=== PATIENT | female | born 1955 | race Caucasian/White ===

== ENCOUNTER 2018-09-01 10:56 | Inpatient (IN) ==
[2018-09-01] MEDS ORDERED: *HR* Remifentanil 1 MG VIAL IVP ONE ×2 (11:21→16:22)
[2018-09-01] MEDS ORDERED: Dexamethasone 4 MG/ML VIAL ONE (11:22)
[2018-09-01] MEDS ORDERED: Lidocaine -MPF 2% 2 ML VIAL ONE (11:22)
[2018-09-01] MEDS ORDERED: Ondansetron 4 MG/2 ML VIAL ONE (11:22)
[2018-09-01] MEDS ORDERED: *HR* Propofol 200 MG/20 ML VIAL IVP ONE (11:22)
[2018-09-01] MEDS ORDERED: *HR* Midazolam HCl 2 MG/2 ML VIAL ONE (11:22)
[2018-09-01] MEDS ORDERED: *HR* Rocuronium Bromide 50 MG/5 ML VIAL ONE (11:22)
[2018-09-01] MEDS ORDERED: *HR* FentaNYL (PF) 100 MCG/2 ML VIAL ONE (11:22)
--- NOTE | 2018-09-01 11:33 | Anesthesia Evaluation PreOp ---
Date of Encounter: 09/01/18 Time of Encounter: 11:31 - Past History Planned Operation: right superficial femoral endarterectomy Cardiac History: [place] (2011), HTN, Hyperlipidemia, Cardiac Stent (x1 2011), Other (CAD, PAD) Pulmonary History: Smoker PROOF OPERATOR History: Denies Any Significant HX Other Medical History: Renal (CKD 3), Diabetes Type II, Thyroid Anesthesia History: No Prior Anesthetic Complications, Past Anesthesia (TURBT, ureteral stent) Alcohol Use: none Drug use: none Medications and Allergies Aspirin [Ecotrin] 325 mg PO DAILY 07/13/17 [History] Cholecalciferol (D-3) [Vitamin D] 2,000 unit PO DAILY 07/13/17 [History] Isosorbide MONOnitrate (24 HR) [Imdur] 30 mg PO DAILY 07/13/17 [History] Levothyroxine [Synthroid] 50 mcg PO DAILY 07/13/17 [History] Metoprolol [Lopressor] 100 mg PO DAILY 07/13/17 [History] Nitroglycerin [Nitrostat] 0.4 mg SL DAILY PRN 07/13/17 [History] Simvastatin [Zocor] 40 mg PO DAILY 07/13/17 [History] Allopurinol [Zyloprim 100 MG] 100 mg PO DAILY 07/20/18 [History] Glimepiride [Amaryl] 1 mg PO DAILY 07/20/18 [History] Pyridoxine HCl [Vitamin B-6] 100 mg PO DAILY 07/20/18 [History] Allergy/AdvReac Type Severity Reaction Status Date / Time latex Allergy Hives Verified 08/03/17 14:45 Psyllium [From Metamucil] AdvReac Vomiting Verified 08/03/17 14:45 - Meds/Allergy Pre-op Review Medications Reviewed: Yes Allergies Reviewed: Yes Beta Blockers on Current Med List: Yes If Beta Blockers taken, Date/Time (Last Dose taken): today 0700 Anesthesia Results - Labs Laboratory Tests 08/29/18 08/29/18 16:37 16:37 Hgb 13.3 Hct 39.4 Plt Count 237 Sodium 139 Potassium 4.1 BUN 54 H Creatinine 1.69 H - Imaging EKG: report reviewed (SINUS RHYTHM WITH OCCASIONAL VENTRICULAR PREMATURE COMPLEXES LEFT BUNDLE BRANCH BLOCK) Anesthesia Exam - HEENT Pupil (Motor): EOMI Mallampati: II Teeth: Poor dentition Oral Opening: Greater than 3 - PROOF OPERATOR LOC: Oriented PROOF OPERATOR Motor: Normal RUE, Normal LUE, Normal RLE, Normal LLE, Normal Face PROOF OPERATOR Sensory: Normal: RUE, LUE, RLE, LLE, Face - Cardiac Rhythm: Regular Murmur: None - Pulmonary Breath Sounds: bilateral Clear Respiratory Effort: Symmetrical Anesthesia Assess/Plan ASA Score: 3 Level of consciousness: Cooperative, Oriented, Tranquil Anesthetic Plan: General Monitoring Plan: Standard Monitors Recovery Plan: PACU (agrees to GA)
[2018-09-01] MEDS ORDERED: CeFAZolin Syr 2,000MG/20 ML 2,000 MG/20 ML SYRINGE IVPB ONE (11:43)
[2018-09-01] MEDS ORDERED: Ringers Solution, Lactated 1,000 ML IVC SCH ×2 (11:45→12:00)
[2018-09-01] MEDS ORDERED: *HR* FentaNYL (PF) 100 MCG/2 ML VIAL IVP PRN (11:56)
[2018-09-01] MEDS ORDERED: *HR* OxyCODONE Immed Rel 5 MG TABLET PO PRN ×2 (11:56→18:49)
[2018-09-01] MEDS ORDERED: *HR* Promethazine 25 MG/ML VIAL IVP PRN ×2 (11:56→18:49)
[2018-09-01] MEDS ORDERED: traMADol 50 MG TABLET PO PRN (11:56)
[2018-09-01] MEDS ORDERED: Albuterol 2.5 MG/3 ML NEBULIZER IH ONE (11:56)
--- NOTE | 2018-09-01 12:02 | History & Physical Report ---
Date of Encounter: 09/01/18 Time of Encounter: 11:50 24 Hour HP Update - Instructions Instructions: If the History and Physical is less than 30 days old and was completed prior to A.M. admission and or procedure and has NOT been updated on calendar day of procedure please complete this update prior to performing procedure. - Update Patient reports changes in Medical Condition: No Changes in examination, assessment, or condition: No Changes in Medication: No Preop tests/diagnostics Reviewed: Yes Surgery Remains Indicated: Yes Consent for Planned Operative Procedure(s) Verified: Yes - Pre-Operative Checklist Preoperative Checklist Indicated: Yes Prophylactic Antibiotic Ordered: Yes (Vancomycin due to risk of MRSA) Home Medications Include Beta Herminia: Yes Beta Herminia Taken Today (Day of Surgery): Yes Beta Herminia Taken Yesterday (Day Prior to Surgery): Yes Is VTE Prophylaxis Indicated?: Yes
[2018-09-01] MEDS ORDERED: Albuterol 2.5 MG/3 ML NEBULIZER ONE (12:16)
[2018-09-01] MEDS ORDERED: Water for inj. (sterile) 20 ML IV ONE (12:17)
[2018-09-01] MEDS ORDERED: *HR* Phenylephrine 10 MG/ML VIAL ONE (12:19)
[2018-09-01] MEDS ORDERED: Vancomycin 1,000 MG, Sodium Chloride IRRigation 1,000 ML IR ONE (12:45)
[2018-09-01] MEDS ORDERED: Heparin 1,000 UNITS/500 mL 500 ML ONE (12:59)
[2018-09-01] MEDS ORDERED: *HR* PHENYLEPHRINE 1,000 MCG/10 ML SYRINGE IVP ONE (13:43)
[2018-09-01] MEDS ORDERED: EPHEDrine 50 MG/ML VIAL ONE (14:04)
[2018-09-01] MEDS ORDERED: *HR* Heparin 5,000 UNIT/ML VIAL ONE ×2 (14:52→15:32)
[2018-09-01] MEDS ORDERED: *HR* HYDROMORPHONE 2 MG/ML VIAL ONE (16:52)
[2018-09-01] MEDS ORDERED: Neostigmine Methylsulfate 3 MG/3 ML SYRINGE ONE (16:55)
--- NOTE | 2018-09-01 17:55 | Operative Note ---
Date of procedure: 09/01/18 Pre-op diagnosis: Peripheral vascular disease with disabling claudication Post-op diagnosis: same Procedure: 1. Right superficial femoral artery endarterectomy with bovine pericardial patch angioplasty. 2. Right popliteal artery endarterectomy with bovine pericardial patch angioplasty. Complications: None Anesthesia: CHITRAA Surgeon: Isreal Cotton Was there an technical administrative assistant present: No Estimated blood loss (cc): 100 Specimen: Right superficial femoral and popliteal artery plaque Condition: stable Disposition: PACU Procedure in Detail: Indications: The patient is a 63-year-old female with a history of diabetes, chronic kidney disease, hyperlipidemia, hypertension, coronary disease and tobacco abuse. The patient presented to clinic with disabling right lower extremity claudication. She underwent angiography which revealed a right superficial femoral and popliteal artery occlusion. Revascularization was recommended to alleviate her symptoms. Procedure: The patient was identified in the preoperative area. The risks, benefits, and alternatives of procedure were discussed and all questions were answered. She was taken to the operating room and placed in supine position on the operating room table. After the induction of general endotracheal anesthesia, She was prepped and draped in normal sterile fashion. A longitudinal incision was made along the right medial thigh sharply. Hemostasis was obtained with electrocautery. Through a process of blunt and sharp electrocautery dissection, the skin and subcutaneous tissues were dissected and the muscle fascia was then divided to expose the left superficial femoral artery. Further dissection was then performed distally and inferior to the sartorius muscle in order to dissect the above-knee popliteal artery circumferentially. Vessels loops were passed around the distal above-knee popliteal artery. A pulse was palpated proximally in the right superficial femoral artery and right superficial femoral artery and above-knee popliteal artery were dissected and surrounded with vessel loops. The artery was then completely mobilized. Side branches were looped with vessel loops as well. The patient received 5000 units of heparin intravenously and additional heparin throughout the case to maintain adequate anticoagulation. The superficial femoral artery and popliteal artery as well as side branches were occluded by applying tension to the Vesseloops. A longitudinal arteriotomy was then made sharply into the superficial femoral artery with a #11 blade. The arteriotomy was then extended distally through the popliteal artery. Using a de ntal freer, an endarterectomy was performed along the superficial femoral artery. The specimen was removed. The proximal vessel loop was then released and strong pulsatile antegrade flow was noted. The vessel loop was then reapplied. Using a dental freer and endarterectomy was then performed along the right popliteal artery. The distal endpoint was inspected and no elevated flaps noted. Release of the popliteal vessel loop revealed retrograde blood flow. Heparinized saline was infused into the lumen and then the vessel loop was reapplied. A bovine pericardial patch was cut to fit the superficial femoral artery. The patch was then sutured to the superficial femoral artery with a 6-0 running Prolene suture. A separate patch was required for the popliteal artery. The patch was cut to fit the popliteal artery and sutured to the above-knee popliteal artery with a running 6-0 Prolene. Prior to completing the patch angioplasties the vessels were flushed antegrade and retrograde. Heparinized saline was then infused into the lumen of the vessels. The patches were then closed with a running 6-0 Prolene. Flow was then restored. Polyphasic signals were then noted through the patches and distal to the distal patch. Thrombin and Gelfoam were used to aid in hemostasis. The wound was irrigated with antibiotic-containing saline. Platelet-rich and platelet-poor plasma were infused into the wound. The wounds were reapproximated with layer of 2-0 Vicryl followed by two layers of 3-0 and Vicryl 3-0 Monocryl in the subcuticular layer. Sterile dressings were applied. The patient was extubated, taken to recovery room in stable condition.
--- NOTE | 2018-09-01 18:24 | Anesthesia Evaluation Post Op ---
Date of Encounter: 09/01/18 Time of Encounter: 18:24 - Vital Signs Vital Signs: Vital Signs/O2 Sat, Most Current Temp Pulse Resp BP Pulse Ox 97.6 F 61 16 127/56 93 09/01/18 18:12 09/01/18 18:12 09/01/18 18:12 09/01/18 18:12 09/01/18 18:12 - Lungs Lungs: Clear Ascult./Percussion - Airway Airway: Non-obstructed - Cardiovascular Regular Rate - Mental Status Mental Status: Alert & Oriented, Answers Appropriately - Pain Pain Scale: 3 Pain Scale used: Numeric (1 - 10) - Nausea Vomiting Nausea Vomiting: Not Present - Hydration Hydration: Ice chips, Dumont catheter - Discharge PostOp Status: Transfer Patient to floor
[2018-09-01] MEDS ORDERED: OXYCODONE Oral CONC 10 MG/0.5 ML ORAL.SYG SL PRN ×2 (18:49)
[2018-09-01] MEDS ORDERED: 0.9 % Sodium Chloride 1,000 ML IVC SCH (18:49)
[2018-09-01] MEDS ORDERED: *HR* HYDROcodone/Acet 5/325 mg TABLET PO PRN (18:49)
[2018-09-01] MEDS ORDERED: Acetaminophen 325 MG TABLET PO PRN (18:49)
[2018-09-01] MEDS ORDERED: Naloxone 0.4 MG/ML INJ IVP PRN (18:49)
[2018-09-01] MEDS ORDERED: Nitroglycerin 0.4 MG TAB.SUBL SL PRN (18:49)
[2018-09-01] MEDS ORDERED: *HR* Labetalol 20 MG/4 ML SYRINGE IVP PRN (18:49)
[2018-09-01] MEDS: *HR* Metoprolol 5 MG/5 ML VIAL IVP SCH ×2 (20:57→23:52)
[2018-09-02] MEDS: *HR* Metoprolol 5 MG/5 ML VIAL IVP SCH (05:45)
[2018-09-02] MEDS ORDERED: *HR* Heparin 5,000 UNIT/ML VIAL SQ SCH ×2 (06:00)
[2018-09-02 06:48] LABS: Basophils % 0.3 %; Eosinophils % 0.1 %; Hematocrit 32.3 % (35.3-44.9); Immature Granulocytes % 0.6 % (0-4); Lymphocytes % 32.1 %; Mean Corpuscular HGB Conc 34.1 g/dL (31.6-35.5); Mean Corpuscular Hemoglobin 30.2 pg (28.0-33.3); Mean Corpuscular Volume 88.7 fL (83.0-100.0); Mean Platelet Volume 9.8 fL (9.4-12.4); Monocytes # 0.7 K/mcL (0.0-1.3); Monocytes % 4.5 %; Neutrophils # 9.7 K/mcL (1.6-8.9); Platelet Count 184 K/mcL (140-400); Red Blood Count 3.64 M/mcL (3.82-4.97); Red Cell Distribution Width 14.1 % (11.5-14.5); Segmented Neutrophils % 62.4 %
[2018-09-02 06:58] LABS: Calcium 8.5 mg/dL (8.6-10.3); Potassium 4.8 mEq/L (3.5-5.1)
[2018-09-02 07:13] VITALS: BP 122/85
--- NOTE | 2018-09-02 07:42 | Discharge Summary ---
Orders not resulted at time of discharge: Pending orders 08/25/18 10:01 Red Blood Cells [BBK] Routine 09/01/18 17:48 Surgical Pathology [PTH] Routine Date of Encounter: 09/02/18 Time of Encounter: 07:40 - Discharge Diagnosis (1) Atherosclerosis of [place] arteries of extremities with intermittent claudication, right leg Priority: Primary Status: Chronic Comments: The patient is postoperative day #1 after a right superficial femoral and popliteal endarterectomy. Her incision is healing. She is palpable pedal pulses. Her compartments are soft. She will be discharged today. (2) Chronic kidney disease, stage III (moderate) Priority: Secondary Status: Chronic (3) Mixed hyperlipidemia Priority: Secondary Status: Chronic (4) Essential hypertension Priority: Secondary Status: Chronic (5) Coronary artery disease Priority: Secondary Status: Chronic Qualifiers: Coronary Disease-Associated Artery/Lesion type: [place] artery [place] vs. transplanted heart: [place] heart Associated angina: without angina Qualified Code(s): I25.10 - Atherosclerotic heart disease of [place] coronary artery without angina pectoris (6) Tobacco abuse Priority: Secondary Status: Chronic (7) Acute blood loss anemia Priority: Secondary Status: Acute Comments: The patient has acute expected postoperative blood loss anemia. She is hemodynamically stable without evidence of ongoing blood loss. - Hospital Course Hospital course: Ms. Mae is a 63 year old female with a history of chronic kidney disease stage III, tobacco abuse, diabetes, hyperlipidemia, hypertension and coronary artery disease. The patient was found have a right superficial femoral and popliteal artery occlusions which resulted in severe disabling claudication the right lower extremity. She was admitted and underwent a right superficial femoral and popliteal endarterectomy. She tolerated the procedure well. On postop day #1 her pain was well-controlled. She is able to ambulate. She had palpable pedal pulses and was without complaints. She was noted to have acute expected postoperative blood loss anemia. She was hemodynamically stable without evidence of ongoing blood loss. She was discharged on postop day #1 without complication. Time spent discussing smoking cessation with patient: 3 to 10 minutes - Time Spent with Patient Total time spent providing and/or coordinating discharge services: - Discharge Medications Prescriptions: Continue RX: Isosorbide MONOnitrate (24 HR) [Imdur] 30 mg PO DAILY RX: Cholecalciferol (D-3) [Vitamin D] 2,000 unit PO DAILY RX: Simvastatin [Zocor] 40 mg PO DAILY RX: Nitroglycerin [Nitrostat] 0.4 mg SL DAILY PRN PRN Reason: Angina RX: Levothyroxine [Synthroid] 50 mcg PO DAILY RX: Aspirin [Ecotrin] 325 mg PO DAILY RX: Allopurinol [Zyloprim 100 MG] 100 mg PO DAILY RX: Pyridoxine HCl [Vitamin B-6] 100 mg PO DAILY RX: Glimepiride [Amaryl] 1 mg PO DAILY RX: Lisinopril-HCTZ 20-12.5 [Prinzide 20-12.5] 1 tab PO DAILY RX: Metoprolol Succinate [Toprol Xl] 100 mg PO DAILY Home Medications: RX: Aspirin [Ecotrin] 325 mg PO DAILY 07/13/17 [History] RX: Cholecalciferol (D-3) [Vitamin D] 2,000 unit PO DAILY 07/13/17 [History] RX: Isosorbide MONOnitrate (24 HR) [Imdur] 30 mg PO DAILY 07/13/17 [History] RX: Levothyroxine [Synthroid] 50 mcg PO DAILY 07/13/17 [History] RX: Nitroglycerin [Nitrostat] 0.4 mg SL DAILY PRN 07/13/17 [History] RX: Simvastatin [Zocor] 40 mg PO DAILY 07/13/17 [History] RX: Allopurinol [Zyloprim 100 MG] 100 mg PO DAILY 07/20/18 [History] RX: Glimepiride [Amaryl] 1 mg PO DAILY 07/20/18 [History] RX: Pyridoxine HCl [Vitamin B-6] 100 mg PO DAILY 07/20/18 [History] RX: Lisinopril-HCTZ 20-12.5 [Prinzide 20-12.5] 1 tab PO DAILY 09/01/18 [History] RX: Metoprolol Succinate [Toprol Xl] 100 mg PO DAILY 09/01/18 [History] Allergies/Adverse Reactions: Allergy/AdvReac Type Severity Reaction Status Date / Time latex Allergy Hives Verified 09/01/18 12:09 Psyllium [From Metamucil] AdvReac Vomiting Verified 09/01/18 12:09 Date of admission: 09/01/18 18:38 Primary care physician: Lam Morales MD Procedure(s) Performed: Right superficial femoral and popliteal artery endarterectomy. Discharging clinician: Isreal Cotton Anticipated date of discharge: 09/02/18 Exam Vital Signs, Last 4 Hours Temp Pulse Resp BP Pulse Ox 09/02/18 07:11 97.7 F 81 16 122/85 95 09/02/18 04:15 98.0 F 73 16 109/53 94 09/02/18 03:50 63 General: Present: Conversant HEENT: Present: Pupils equal Cardiac: Present: Reg Rate and Rhythm Lungs: Present: Normal Breath Sounds Neuro: Present: Alert and responsive, Motor nerves grossly intact, Sensory nerves grossly intact Abdomen: Present: Soft Vascular: Present: Normal capillary refill, Pulse, normal, Surgical incisions (clean, dry and intact without erythema, drainage or hematoma). Absent: Cyanosis Skin: Present: No rashes noted on visualized skin - Patient Status Disposition: Home, Self-Care Condition: Good Functional capacity at discharge: independent ambulation Overall status at discharge: patient is back to baseline - Discharge Instructions Instructions: Peripheral Vascular Disorders (DC), Remote Superficial Femoral Artery Endarterectomy (DC) Follow Up With: Lam Morales MD [Primary Care Provider] - 09/08/18 1:00 pm Isreal Cotton MD [Partnered Physician] - 09/20/18 2:00 pm Additional Instructions: May remove bandage and shower on 09/03/2018. Wash wounds gently and pat to dry. Applied dry gauze to wounds daily for 7 days. No tub baths or swimming until 10/12/2018. Call [phone] with questions or concerns. - Diet and Activity Activity: increase activity as tolerated Diet: advance to your usual diet
[2018-09-02] MEDS ORDERED: Cholecalciferol (D-3) 1,000 UNIT TABLET PO SCH (09:00)
[2018-09-02] MEDS ORDERED: Aspirin Enteric Coated 325 MG Tablet PO SCH (09:00)
[2018-09-02] MEDS ORDERED: Isosorbide MONOnitrate (24 HR) 30 MG TAB.ER.24H PO SCH (09:00)
[2018-09-02] MEDS ORDERED: Lisinopril-HCTZ 20-12.5mg TABLET PO SCH (09:00)
[2018-09-02] MEDS ORDERED: Metoprolol XL (24 HR) Succ 50 MG TAB.ER.24H PO SCH (09:00)
[2018-09-02] MEDS ORDERED: Pyridoxine (B-6) 50 MG TABLET PO SCH (09:00)
== END 2018-09-02 09:42 | disposition home or self-care (01) | DRG 181 ==
LOC: SAMDAY 10:56 → 2NNU 18:38
PROVIDERS: ADMIT Surgery; ATTEND Surgery

== ENCOUNTER 2019-03-30 06:07 | Inpatient (IN) ==
[2019-03-30] MEDS ORDERED: CeFAZolin Syr 2,000MG/20 ML 2,000 MG/20 ML SYRINGE IVPB ONE (06:32)
[2019-03-30] MEDS ORDERED: Albuterol 2.5 MG/3 ML NEBULIZER IH PRN ×2 (06:32→07:12)
[2019-03-30] MEDS ORDERED: 0.9 % Sodium Chloride 1,000 ML IVC SCH (06:45)
[2019-03-30] MEDS ORDERED: Ondansetron 4 MG/2 ML VIAL IVP ONE (07:12)
[2019-03-30] MEDS ORDERED: Acetaminophen IV 1,000 MG/100 ML INFUS..BTL IVPB ONE (07:12)
[2019-03-30] MEDS ORDERED: Famotidine 20 MG/2 ML VIAL IVP ONE (07:12)
[2019-03-30] MEDS ORDERED: *HR* HYDROmorphone (PF) 1 MG/ML SYRINGE IVP PRN (07:12)
[2019-03-30] MEDS ORDERED: *HR* OxyCODONE Immed Rel 5 MG TABLET PO PRN ×2 (07:12→11:54)
[2019-03-30] MEDS ORDERED: *HR* Promethazine 25 MG/ML VIAL IVP PRN (07:12)
[2019-03-30] MEDS ORDERED: *HR* Labetalol 20 MG/4 ML SYRINGE IVP PRN (07:12)
[2019-03-30] MEDS ORDERED: Lidocaine -MPF 4% 5 ML AMPUL ONE (07:14)
[2019-03-30] MEDS ORDERED: *HR* FentaNYL (PF) 100 MCG/2 ML VIAL ONE (07:14)
[2019-03-30] MEDS ORDERED: *HR* Midazolam HCl 2 MG/2 ML VIAL ONE (07:14)
[2019-03-30] MEDS ORDERED: Dexamethasone 4 MG/ML VIAL ONE (07:14)
[2019-03-30] MEDS ORDERED: *HR* Rocuronium Bromide 50 MG/5 ML VIAL ONE (07:14)
[2019-03-30] MEDS ORDERED: Lidocaine -MPF 2% 2 ML VIAL ONE (07:14)
[2019-03-30] MEDS ORDERED: Neostigmine Methylsulfate 3 MG/3 ML SYRINGE ONE (07:14)
[2019-03-30] MEDS ORDERED: Ondansetron 4 MG/2 ML VIAL ONE (07:14)
[2019-03-30] MEDS ORDERED: *HR* Propofol 200 MG/20 ML VIAL IVP ONE (07:14)
[2019-03-30] MEDS ORDERED: Lidocaine HCL 4 ML Topical Solution (Laryng-O-Jet Kit Sterile Pak) TP ONE (07:18)
[2019-03-30] MEDS ORDERED: Vancomycin 1,000 MG VIAL ONE (07:23)
[2019-03-30] MEDS ORDERED: Heparin 1,000 UNITS/500 mL 500 ML ONE (07:23)
[2019-03-30] MEDS ORDERED: Vancomycin 1,000 MG, Sodium Chloride IRRigation 1,000 ML IR ONE (07:45)
[2019-03-30] MEDS ORDERED: EPHEDrine 50 MG/ML VIAL ONE (08:27)
[2019-03-30] MEDS ORDERED: Calcium Gluconate 1,000 MG/10 ML VIAL ONE (08:58)
[2019-03-30] MEDS ORDERED: *HR* Heparin 5,000 UNIT/ML VIAL ONE (09:14)
[2019-03-30] MEDS ORDERED: Acetaminophen 325 MG TABLET PO PRN ×2 (11:54)
[2019-03-30] MEDS ORDERED: *HR* HYDROcodone/Acet 5/325 mg TABLET PO PRN (11:54)
[2019-03-30] MEDS ORDERED: Nitroglycerin 0.4 MG TAB.SUBL SL PRN (11:54)
[2019-03-30] MEDS ORDERED: Naloxone 0.4 MG/ML INJ IVP PRN (11:54)
[2019-03-30] MEDS ORDERED: Ondansetron 4 MG/2 ML VIAL IVP PRN (11:54)
[2019-03-30] MEDS: *HR* OxyCODONE Immed Rel 5 MG TABLET PO PRN ×2 (13:09→20:26)
[2019-03-30] MEDS: *HR* Metoprolol 5 MG/5 ML VIAL IVP SCH ×2 (13:10→17:29)
[2019-03-30] MEDS: *HR* HYDROcodone/Acet 5/325 mg TABLET PO PRN (15:47)
[2019-03-30] MEDS ORDERED: Dextrose Gel 15 GM/37.5 ML TUBE PO PRN ×2 (16:08)
[2019-03-30] MEDS ORDERED: *HR* Dextrose 50 % in Water (Syg) 50 ML SYRINGE IVP PRN (16:08)
[2019-03-30] MEDS ORDERED: D5% in Water 1,000 ML IVC PRN (16:08)
[2019-03-30] MEDS: Insulin LISPRO 300 UNITS/3 ML VIAL SQ SCH (17:21)
[2019-03-30] MEDS ORDERED: Insulin LISPRO 300 UNITS/3 ML VIAL SQ SCH (21:00)
[2019-03-31] MEDS: *HR* HYDROcodone/Acet 5/325 mg TABLET PO PRN (00:18)
[2019-03-31] MEDS: *HR* Metoprolol 5 MG/5 ML VIAL IVP SCH ×2 (00:19→05:41)
[2019-03-31 04:27] LABS: Basophils % 0.2 %; Eosinophils % 0.1 %; Hematocrit 37.2 % (35.3-44.9); Immature Granulocytes % 0.4 % (0-4); Lymphocytes # 5.2 K/mcL (0.6-4.6); Lymphocytes % 30.7 %; Mean Corpuscular HGB Conc 34.4 g/dL (31.6-35.5); Mean Corpuscular Hemoglobin 30.5 pg (28.0-33.3); Mean Corpuscular Volume 88.6 fL (83.0-100.0); Mean Platelet Volume 9.3 fL (9.4-12.4); Monocytes # 0.9 K/mcL (0.0-1.3); Monocytes % 5.1 %; Neutrophils # 10.8 K/mcL (1.6-8.9); Platelet Count 198 K/mcL (140-400); Red Cell Distribution Width 13.2 % (11.5-14.5); Segmented Neutrophils % 63.5 %
[2019-03-31 04:37] LABS: Hemoglobin 12.8 g/dL (11.5-15.4)
[2019-03-31 04:45] LABS: BUN/Creatinine Ratio 18 (6-26); Blood Urea Nitrogen 20 mg/dL (8-23); Calcium 8.8 mg/dL (8.6-10.3); Carbon Dioxide 25 mEq/L (23-29); Chloride 108 mEq/L (98-107); Glucose 108 mg/dL (70-105); Osmolality,Calculated 289 (280-300); Potassium 3.9 mEq/L (3.5-5.1); Sodium 138 mEq/L (136-145); eGFR For African Americans > 60 (> 60); eGFR For Non-African Americans 50 (> 60)
[2019-03-31] MEDS ORDERED: *HR* Heparin 5,000 UNIT/ML VIAL SQ SCH ×2 (06:00)
[2019-03-31 07:26] VITALS: BP 146/62
[2019-03-31] MEDS: Insulin LISPRO 300 UNITS/3 ML VIAL SQ SCH (08:03)
[2019-03-31] MEDS: *HR* OxyCODONE Immed Rel 5 MG TABLET PO PRN (08:10)
[2019-03-31] MEDS ORDERED: Isosorbide MONOnitrate (24 HR) 30 MG TAB.ER.24H PO SCH (09:00)
[2019-03-31] MEDS ORDERED: hydroCHLOROthiazide 25 MG TABLET PO SCH (09:00)
[2019-03-31] MEDS ORDERED: Pyridoxine (B-6) 50 MG TABLET PO SCH (09:00)
[2019-03-31] MEDS ORDERED: Metoprolol XL (24 HR) Succ 50 MG TAB.ER.24H PO SCH (09:00)
== END 2019-03-31 10:18 | disposition home or self-care (01) | DRG 181 ==
LOC: SAMDAY 06:07 → 2NNU 11:38
PROVIDERS: ADMIT Surgery; ATTEND Surgery